=== PATIENT | male | born 1975 | race Caucasian/White ===

== ENCOUNTER 2023-11-20 18:07 | Emergency (ER) | payer BC, SELFPAY ==
[2023-11-20] VITALS (7 sets, daily range): BP systolic 108–149; BP diastolic 72–101; PULSE 60–75
[2023-11-20 18:33] LABS: % Basophils 0.4 % (0-2); % Eosinophils 2.4 % (0-6); % Immature Granulocytes 0.1 % (0-0.5); % Lymphocytes 33.8 % (20.5-51.1); % Monocytes 8.7 % (1.7-9.3); % Neutrophils 54.6 % (42.2-75.2); Absolute Eosinophils 0.2 10^3/uL (0-0.7); Absolute Lymphocytes 2.3 10^3/uL (1.2-3.4); Absolute Monocytes 0.6 10^3/uL (0.1-0.6); Absolute Neutrophils 3.7 10^3/uL (1.4-6.5); Hemoglobin 14.4 g/dL (13.0-18.0); Mean Corp Hgb Conc. 35.1 g/dL (33.0-37.0); Mean Corpuscular Volume 88.2 fL (80.0-94.0); Mean Platelet Volume 9.8 fL (7.4-10.4); Nucleated Red Blood Cells % 0 % (-); Platelet Count 250 10^3/uL (130-400); Red Blood Cell Count 4.65 10^6/uL (4.70-6.10); Red Cell Dist. Width 12.9 % (11.5-14.5); White Blood Cell Count 6.8 10^3/uL (4.8-10.8)
[2023-11-20 18:54] LABS: ALT (SGPT) 42 U/L (0-50); AST (SGOT) 46 U/L (17-59); Albumin 4.4 g/dl (3.5-5.0); Alkaline Phosphatase 81 U/L (38-126); Blood Urea Nitrogen 25 mg/dl (9-20); Calcium 9.3 mg/dl (8.4-10.2); Carbon Dioxide 26 mmol/L (22-30); Chloride 104 mmol/L (98-107); Glucose 93 mg/dl (70-99); Potassium 4.6 mmol/L (3.5-5.1); Sodium 135 mmol/L (135-145); Total Bilirubin 0.6 mg/dl (0.2-1.3); Total Protein 7.1 g/dl (6.3-8.2); eGFR > 60.00
[2023-11-20 19:35] LABS: TSH Reflex To Free T4 1.73 uIU/ml (0.47-4.68)
--- NOTE | 2023-11-20 21:21 | ED.GENMED ---
History of Present Illness
General
Chief Complaint: Heart Rate Problem
Source: patient
Exam Limitations: none
Time Seen by Provider: 11/20/23 21:12
Travel History
Have you had any contact with someone who has COVID-19?: No
Do you have any symptoms of coronavirus? Fever > 100 degrees, chills, cough, shortness of breath, sore throat, loss of taste or smell, muscle aches, or headache?: No
History of Present Illness
History of Present Illness:
This is 48 year old male that comes in with c/o fluttering in his chest. States that he was at work and he works in [place]. 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 States the
stood up and climbed down a ladder as he wanted to get off the roof. States that he then laid down on the floor. States that is a couple of min he got up and sat in a chair. States that he started to feel lik it was coming back so they called 911.
States that in about a half hour he felt better. States that he sign off on EMS an came home. States that this was a tapping in his chest and he was lightheaded. Denies any fever, chills, SOB, abd pain nausea, vomiting, diarrhea, headache, urinary
burning.
Past History
Past History
ED Past Medical History: HTN and Other (ADHD, right eye trauma)
ED Past Surgical History: Other (Hernia X 2)
Social History
Tobacco: Non-smoker
Alcohol: None
Personal:
Living: with family
Employment: Employed
Review of Systems
Review of Systems
All Other Systems: ROS reviewed and negative except as documented in HPI and ROS
Constitutional: Reports no symptoms; Denies fever or chills
EENT: Reports no symptoms
Respiratory: Denies cough or trouble breathing
Cardiac: Reports other (Fluttering or tapping in his chest); Denies chest pain
ABD/GI: Reports no symptoms; Denies abdominal pain, nausea, vomiting or diarrhea
: Reports no symptoms; Denies dysuria, frequency or urgency
Musculoskeletal: Reports no symptoms
Skin: Reports no symptoms
Neurological: Reports other (Lightheaded); Denies headache
Psychiatric: Reports no symptoms
Phy Exam
General Physical Exam
General Presentation: well appearing and no apparent distress
General age: appears stated age
General Skin: warm and dry
General Habitus: normal
General Mental: alert
General Hydration: appears well hydrated
ENT Exam
ENT Exam: TM's normal, pharynx normal and neck supple
Eye Exam
Eye Exam: EOMI
Cardiovascular Exam
Cardiovascular Exam: regular rate/rhythm, no edema, no murmur and normal peripheral pulses
Pulmonary Exam
Pulmonary Exam: lungs clear, no respiratory distress, no rales, chest non tender, no crackles, no rhonchi, no wheezing and no cough
Gastrointestinal Exam
Gastrointestinal Exam: normal bowel sounds, non tender, soft, no organomegaly, no pulsatile mass and non distended
Musculoskeletal Exam
Musculoskeletal Exam: full ROM and no edema
Skin Exam
Skin Exam: normal color, warm/dry, no rash and no petechia
Psychiatric Exam
Psychiatric Exam: normal mood/affect
Course
Orders/Labs/Results
Orders:
Orders
11/20/23 18:17
ECG [Electrocardiogram (*1)] Urgent
Reason for Study: Palpitations
EKG- Treatment ONCE
11/20/23 18:21
Complete Blood Count/With Diff Urgent
Comprehensive Metabolic Panel Urgent
TSH Reflex To Free T4 Urgent
11/20/23 21:13
Orthostatic VS- Treatment ONCE
0.9% Sodium Chloride 1000 ml [Nss] 1,000 ml IV BOLUS
11/20/23 21:55
Troponin I Urgent
Abnormal Lab Results
11/20/23
18:21
RBC 4.65 L 10^6/uL
(4.70-6.10)
BUN 25 H mg/dl
(9-20)
11/20/23 18:21
11/20/23 18:21
Dehydration. TSH normal at 1.73
Vital Signs
Initial and Last Documented VS:
Initial Vital Signs
Temp Pulse Resp BP Pulse Ox
98.7 F 86 16 149/101 98
11/20/23 18:10 11/20/23 18:10 11/20/23 18:10 11/20/23 18:10 11/20/23 18:10
Last Documented Vital Signs
Temp Pulse Resp BP Pulse Ox
98.7 F 63 14 112/75 95
11/20/23 18:10 11/20/23 22:00 11/20/23 22:00 11/20/23 22:00 11/20/23 22:00
MDM/Problems Addressed
Differential Diagnosis Includes:
Dehydration. Atrial fib
MDM/Problems Addressed:
This is a 48 year old male that comes in with c/o a tapping/fluttering in his chest and lightheadedness. States that he was at work when this happened. States that they did call 911 but he signed off on EMS.
Will get labs, ECG, Orthostatic vitals. Patient brought EMS ECG which shows a normal sinus Rhythm. Will also give IV fluids
Back into see patient. Patient did not tilt with Orthostatics and state that he feels better. Explained that he has been in a NSR here. Will have patient follow up with the Family doctor. Return with any concerns.
Chronic conditions affecting care:
NA
Acute Exacerbation and/or Progression of Chronic Illness:
NA
*Pulse Oximetry
Patient hypoxic: no
*EKG
Interpreted by ED Provider?: Yes
Heart Rate: 74
Rate: normal
Rhythm: sinus
[place]: normal axis
Interval: normal interval
QRS Pattern: normal QRS
Ischemia: no ischemia
*[employer] Interpretation
Rate: normal
Heart Rate: 70
Rhythm: sinus
*Critical Care Note
Total Time (30-74mins, 75-104mins- exclusive of procedures): Not Applicable
ED Attending Note
-
Portions of this chart may have been created with voice recognition software.� Occasional wrong word or��sound alike� substitutions may have occurred due to the inherent limitations of voice recognition software.
Discharge Plan
Departure
Patient Disposition: Home (Routine Discharge)
Date of Disposition: 11/20/23
Time of Disposition: 22:50
Patient with high blood pressure during this ER visit?: No
Condition: Good
Covid-19: Not Applicable
Discharge Problem:
Dehydration
Instructions: Dehydration, Adult (DC)
Referrals:
Krishna Abernathy CRNP [Family Provider] - Follow up in 2-3 days
Activity Restrictions/Additional Instructions:
As discussed, our blood work shows dehydration. Please increase your water intake to 8-8oz glasses daily. You have been in a normal sinus Rhythm here. Please follow up with family doctor for reheck. IF YOU HAVE ANY OTHER CONCERNS PLEASE RETURN TO
THE EMERGENCY ROOM
Interventions
Interventions:
ED- Fall Risk Assessment Last Done: 11/20/23 22:09
ED- Cardiac Assessment Last Done: 11/20/23 22:09
ED- Pulmonary Assessment Last Done: 11/20/23 22:09
[2023-11-20] MEDS: NSS 1000 IV (22:07)
[2023-11-20 22:29] LABS: Troponin I < 0.012 ng/ml
== END 2023-11-20 23:00 | disposition home or self-care (01) ==
LOC: EMR 18:07
PROVIDERS: Clinical Nurse Specialist Family Health; Emergency Medicine; EMERGENCY PHYSICIAN Emergency Medicine; FAMILY PHYSICIAN Nurse Practitioner Family
DX: E86.0 Dehydration (principal); I49.8 Other specified cardiac arrhythmias; I10 Essential (primary) hypertension; F90.9 Attention-deficit hyperactivity disorder, unspecified type
CPT/HCPCS: 99283; 80053; 84443; 84484; 85025; 93005